=== PATIENT | male | born 1955 | race African-American/Black ===

== ENCOUNTER 2017-08-08 16:44 | Emergency (ER) | payer OTHER ==
[~2017-08-08] VITALS: Ht 172.7 cm; Wt 70.3 kg
[2017-08-08 17:21] LABS: ABSOLUTE NEUTROPHILS 5.6 thou/uL (1.4-8.2); HEMOGLOBIN 14.3 gm/dL (14.0-18.0); LYMPHOCYTES 33.2 % (24.0-44.0); MCH 33.2 pg (26.0-34.0); MONOCYTES 6.4 % (1.0-8.0); PLATELET COUNT 234 thou/uL (150-400); POLYS 58.4 % (36.0-66.0); RBC 4.32 mil/uL (4.50-6.00); RDW 13.2 % (10.5-14.5); WBC 9.5 thou/uL (4.0-11.0)
[2017-08-08 17:25] LABS: CALCIUM 9.3 mg/dL (8.5-10.1); POTASSIUM 3.7 mmol/L (3.5-5.1)
== END 2017-08-08 19:59 | disposition home or self-care (01) ==
LOC: ER 16:44
PROVIDERS: Nurse Practitioner
DX: F10.129 Alcohol abuse with intoxication, unspecified (principal); V87.8XXA Person injured in other specified noncollision transport accidents involving motor vehicle (traffic), initial encounter; Y93.89 Activity, other specified; Y92.89 Other specified places as the place of occurrence of the external cause; Y99.8 Other external cause status